=== PATIENT | female | born 1965 | race Caucasian/White ===

== ENCOUNTER 2023-12-14 20:25 | Emergency (ER) | payer BC, SELFPAY ==
[2023-12-14 20:29] VITALS: BP 125/63
--- NOTE | 2023-12-14 21:43 | ED.MUSCINJ ---
HPI-Injury
General
Chief Complaint: Musculo-Skeletal Complaint
Source: patient
Exam Limitations: none
Time Seen by Provider: 12/14/23 21:43
Nursing documentation reviewed up to this point in time: agreed with
Travel History
Have you had any contact with someone who has COVID-19?: No
Do you have any symptoms of coronavirus? Fever > 100 degrees, chills, cough, shortness of breath, sore throat, loss of taste or smell, muscle aches, or headache?: No
History of Present Illness-Injury
Initial Injury comments:
58-year-old female states she was walking in her neighborhood with her friends about 3 hours ago when she twisted her left ankle, she was wearing a high top boot and was able to walk when she got home and took the boot off the lateral aspect of her
ankle became swollen and sore
Past History
Past History
ED Past Medical History: Other (seasonal allergies)
ED Past Surgical History: None
Social History
Tobacco: Non-smoker
Personal:
Living: with family
Employment: Employed
Review of Systems
Review of Systems
Allergies reviewed?: Yes
All Other Systems: ROS reviewed and negative except as documented in HPI and ROS
Musculoskeletal: Reports other (Pain left ankle)
Musculoskeletal Injury Exam
Musculoskeletal Injury Exam
Left Lateral Ankle:
Pain with Movement?: Moderate
Tender to palpation?: Moderate
Soft tissue swelling?: Moderate
Strain- Sprain- Tear (Connective tissue injury)?: Moderate
Joint instability?: No
Malalignment/deformity?: No
Range of motion: Limited
Distal skin color and temperature: normal-warm & good color
Capillary Refill: normal
Normal distal neurovascular exam?: Yes
Phy Exam
Physical Exam
Physical Exam:
PHYSICAL EXAMINATION:
General: no apparent distress, not acutely ill
Neuro: alert and oriented.
Psychiatric: well kept. interactive and cooperative
Musculoskeletal: Moves with ease
Skin: Warm, pink.
Injury Course
Orders/Labs/Results
Orders:
Orders
12/14/23 20:32
CR Ankle - Left Min 3 Views Urgent
Comment:
Reason For Exam: rolled ankle, pain/swelling medial
12/14/23 21:45
Justen Wrap Left-Treatment ONCE
Air Splint Left-Treatment ONCE
MDM/Problems Addressed
Differential Diagnosis Includes:
Sprain/fracture
MDM/Problems Addressed:
58-year-old female states she was walking in her neighborhood with her friends about 3 hours ago when she twisted her left ankle, she was wearing a high top boot and was able to walk when she got home and took the boot off the lateral aspect of her
ankle became swollen and sore
X-ray left ankle initially read by this examiner, no fracture, mild soft tissue swelling lateral
Justen wrap and air splint applied
Crutches given
*Critical Care Note
Total Time (30-74mins, 75-104mins- exclusive of procedures): Not Applicable
ED Attending Note
-
Portions of this chart may have been created with voice recognition software.� Occasional wrong word or��sound alike� substitutions may have occurred due to the inherent limitations of voice recognition software.
Discharge Plan
Departure
Patient Disposition: Home (Routine Discharge)
Date of Disposition: 12/14/23
Time of Disposition: 21:47
Patient with high blood pressure during this ER visit?: No
Condition: Good
Discharge Problem:
Left ankle sprain
Instructions: Ankle Sprain (DC), Using Cold for Pain, Ankle air splint and elastic bandage
Prescriptions:
No Action
cyclobenzaprine 10 MG tablet
10 mg PO TIDPRN PRN (Reason: pain ) Qty: 12 0RF
Referrals:
Kana Villegas DO [Family Provider] -
Juan Manuel Maciel MD [Active] - As needed
Stand Alone Forms: Return to Work
Activity Restrictions/Additional Instructions:
As we discussed, wear the Justen wrap and air splint as you can walk comfortably without them.
Tylenol or ibuprofen as needed for pain.
See orthopedic doctor if your ankle is not a lot better in 1 week or not 100% better in 3 to 4 weeks
Interventions
Interventions:
*Nursing Disposition Last Done: 12/14/23 22:18
ED-Musculoskeletal Assessment Last Done: 12/14/23 21:01
Discharge Date and Time
Discharge Date/Time: 12/14/23 22:19
== END 2023-12-14 22:19 | disposition home or self-care (01) ==
LOC: EMR 20:25
PROVIDERS: EMERGENCY PHYSICIAN Emergency Medicine; FAMILY PHYSICIAN Family Medicine
DX: S93.402A Sprain of unspecified ligament of left ankle, initial encounter (principal); X50.1XXA Overexertion from prolonged static or awkward postures, initial encounter; Y93.01 Activity, walking, marching and hiking
CPT/HCPCS: 99283; 73610